=== PATIENT | female | born 1970 | race Caucasian/White ===

== ENCOUNTER 2018-04-14 19:02 | Emergency (ER) | payer OTHER ==
--- OUTSIDE RECORDS SUMMARY | 2018-04-14 19:05 | XMS REPORT ---
:1970 Author Organization eClinicalWorks Care Team Providers Name Role Phone Ena Pillai Provider Role Unavailable Allergies, Adverse Reactions, Alerts Substance Reaction Event Type codeine vomiting Drug Allergy Problems Problem Type Condition Code Onset Dates Condition Status Assessment Reflux K21.9 Active Assessment Depression with anxiety F41.8 Active Assessment Difficulty swallowing solids R13.10 Active Assessment Cigarette nicotine dependence F17.210 Active without complication Assessment Hot flashes due to surgical E89.41 Active menopause Problem Depression with anxiety F41.8 Active Problem Reflux K21.9 Active Problem Migraine G43.909 Active Problem Cigarette nicotine dependence F17.210 Active without complication Problem Difficulty swallowing solids R13.10 Active Problem Hot flashes due to surgical E89.41 Active menopause Problem Hot flashes due to menopause N95.1 Active Medications Medication Code System Code Instructions Start End Date Status Dosage Date Pepcid [facility] 09756508956 20 MG Orally Active 1 tablet at Once a day bedtime nexium [facility] 92503425733 Oral Active 1 tab Results No Known Results Summary Purpose eClinicalWorks Submission
--- OUTSIDE RECORDS SUMMARY | 2018-04-14 19:05 | XMS REPORT ---
:1970 Author Organization eClinicalWorks Care Team Providers Name Role Phone Ena Pillai Provider Role Unavailable Allergies No Known Allergies Problems Problem Type Condition Code Onset Dates Condition Status Problem Depression with anxiety F41.8 Active Problem Reflux K21.9 Active Assessment Hypothyroidism (acquired) E03.9 Active Assessment Hyperlipidemia, unspecified E78.5 Active hyperlipidemia type Problem Hyperlipidemia, unspecified E78.5 Active hyperlipidemia type Problem Hot flashes due to surgical E89.41 Active menopause Problem Hypothyroidism (acquired) E03.9 Active Problem Difficulty swallowing solids R13.10 Active Problem Migraine G43.909 Active Problem Hot flashes due to menopause N95.1 Active Problem Cigarette nicotine dependence F17.210 Active without complication Medications Medication Code Code Instructions Start End Status Dosage System Date Date Levothyroxine [facility] 64037002893 25 MCG Orally Apr 06, Active 1 tablet Sodium Once a day 2017 on an empty stomach in the morning Simvastatin ND 18430922936 20 MG Orally Apr 06, Active 1 tablet Once a day 2017 in the evening Results No Known Results Summary Purpose eClinicalWorks Submission
[2018-04-14] MEDS ORDERED: METHYLPREDNISOLONE 125 MG INJ ONE (19:25)
--- NOTE | 2018-04-14 19:36 | EDPHYS ---
Physician Documentation [facility] Name: Sharifa Calderón Age: 47 yrs Sex: Female : 1970 Arrival Date: 04/14/2018 Time: 19:07 Bed Treatment Private MD: ED Physician Sincere Kathleen HPI: 04/14 19:27 This 47 yrs old Female presents to ER via Ambulatory with complaints of rn Allergic Reaction. 19:27 The patient presents with itching, rash. Onset: The symptoms/episode began/occurred rn today. Associated signs and symptoms: Pertinent positives: hives, Pertinent negatives: abdominal pain, chest pain, fever, shortness of breath, swelling. Possible causes: poison becky, poison oak. At home the patient or guardian has treated the symptoms with topical steroid and claritin. Severity of symptoms: At their worst the symptoms were mild in the emergency department the symptoms are unchanged. The patient has not experienced similar symptoms in the past. Reports has poison becky/oak and was cutting it down, began with rash to face, now spreading to rest of face and right posterior thigh.. 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 - Social history:: Smoking status: Patient uses tobacco products, smokes one pack cigarettes per day. - Ebola Screening: : No symptoms or risks identified at this time. - Family history:: not pertinent. - Hospitalizations: : No recent hospitalization is reported. ROS: 19:27 Constitutional: Negative for fever, chills, and weight loss, Eyes: Negative for injury, rn pain, redness, and discharge, Neck: Negative for injury, pain, and swelling, Cardiovascular: Negative for chest pain, palpitations, and edema, Respiratory: Negative for shortness of breath, cough, wheezing, and pleuritic chest pain, Abdomen/GI: Negative for abdominal pain, nausea, vomiting, diarrhea, and constipation, MS/Extremity: Negative for injury and deformity, Skin: + rash to face and right posterior thigh Neuro: Negative for headache, weakness, numbness, tingling, and seizure. Exam: 19:27 Constitutional: This is a well developed, well nourished patient who is awake, alert, rn and in no acute distress. Head/Face: + erythema and urticarial lesions of entire face, no conjunctival involvement, is bilateral, no pustules. Eyes: Pupils equal round and reactive to light, extra-ocular motions intact. Lids and lashes normal. Conjunctiva and sclera are non-icteric and not injected. Cornea within normal limits. ENT: no intraoral lesions Skin: warm, dry, + erythema with papular lesions right posterior thigh Neuro: Awake and alert, GCS 15, oriented to person, place, time, and situation. Cranial nerves II-XII grossly intact. Motor strength 5/5 in all extremities. Sensory grossly intact. Cerebellar exam normal. Normal gait. Vital Signs: 19:13 BP 127 / 84; Pulse 77; Resp 18; Temp 98.2; Pulse Ox 97% ; Weight 83.46 kg; Height 5 ft. ph 3 in. (160.02 cm); 20:01 BP 122 / 72; Pulse 78; Resp 18; Pulse Ox 100% on R/A; Pain 0/10; mg2 19:13 Body Mass Index 32.59 (83.46 kg, 160.02 cm) ph MDM: 19:15 Patient medically screened. rn 19:30 Differential diagnosis: urticaria, poison becky/sumac/oak. Data reviewed: vital signs, rn nurses notes, and as a result, I will discharge patient. Counseling: I had a detailed discussion with the patient and/or guardian regarding: the historical points, exam findings, and any diagnostic results supporting the discharge/admit diagnosis, the need for outpatient follow up, to return to the emergency department if symptoms worsen or persist or if there are any questions or concerns that arise at home. Special discussion: I discussed with the patient/guardian in detail that at this point there is no indication for admission to the hospital. It is understood, however, that if the symptoms persist or worsen the patient needs to return immediately for re-evaluation. Administered Medications: 19:25 Drug: SOLU-Medrol 125 mg Route: IM; Site: left gluteus; mg2 20:01 Follow up: Response: No adverse reaction; Marked relief of symptoms mg2 Disposition: 04/14/18 19:35 Discharged to Home. Impression: Irritant contact dermatitis. - Condition is Stable. - Discharge Instructions: Poison Becky Dermatitis. - Prescriptions for Medrol (Jose Maria) 4 mg Oral Tablets, Dose Pack - take 1 tablet by ORAL route as directed - follow package instructions; 1 packet. - Medication Reconciliation Form, Thank You Letter, Antibiotic Education, Prescription Opioid Use form. - Follow up: Private Physician; When: As needed; Reason: Recheck today's complaints, Re-evaluation by your physician. - Problem is new. - Symptoms have improved. Signatures: Sincere Kathleen MD MD rn Priya Gaviria RN RN Grayson Syed RN RN mg2 Corrections: (The following items were deleted from the chart) 20:02 19:35 04/14/2018 19:35 Discharged to Home. Impression: Irritant contact dermatitis. mg2 Condition is Stable. Forms are Medication Reconciliation Form, Thank You Letter, Antibiotic Education, Prescription Opioid Use. Follow up: Private Physician; When: As needed; Reason: Recheck today's complaints, Re-evaluation by your physician. Problem is new. Symptoms have improved. rn
--- NOTE | 2018-04-14 19:36 | ER ---
Nurse's Notes [facility] Name: Sharifa Calderón Age: 47 yrs Sex: Female : 1970 Arrival Date: 04/14/2018 Time: 19:07 Bed Treatment Private MD: Diagnosis: Irritant contact dermatitis Presentation: 04/14 19:11 Presenting complaint: Patient states: I think I got into some poison raulito or something, ph it started off as a small spot on my cheek this morning and then spread to the rest of my face. I have a spot on the back of my R leg as well." Redness notes to R side of face, pt denies SOB. Transition of care: patient was not received from another setting of care. Onset: The symptoms/episode began/occurred gradually. Anaphylaxis evaluation, no signs or symptoms of anaphylaxis were noted. Onset of symptoms was April 14, 2018. Risk Assessment: Do you want to hurt yourself or someone else? Patient reports no desire to harm self or others. Initial Sepsis Screen: Does the patient meet any 2 criteria? No. Patient's initial sepsis screen is negative. Does the patient have a suspected source of infection? No. Patient's initial sepsis screen is negative. Care prior to arrival: None. 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 - Social history:: Smoking status: Patient uses tobacco products, smokes one pack cigarettes per day. - Ebola Screening: : No symptoms or risks identified at this time. - Family history:: not pertinent. - Hospitalizations: : No recent hospitalization is reported. Screenin:25 Abuse screen: Denies threats or abuse. Denies injuries from another. Nutritional mg2 screening: No deficits noted. Tuberculosis screening: No symptoms or risk factors identified. Fall Risk None identified. Assessment: 19:26 General: Appears in no apparent distress. comfortable, Behavior is calm, cooperative. mg2 Pain: Complains of pain in face Pain does not radiate. Neuro: Level of Consciousness is awake, alert, obeys commands, Oriented to person, place, time, situation. Cardiovascular: Capillary refill < 3 seconds Patient's skin is warm and dry. Respiratory: Airway is patent Respiratory effort is even, unlabored, Respiratory pattern is regular, symmetrical. GI: No signs and/or symptoms were reported involving the gastrointestinal system. : No signs and/or symptoms were reported regarding the genitourinary system. EENT: No signs and/or symptoms were reported regarding the EENT system. Derm: Skin is intact, Skin is pink, warm \\T\\ dry. Rash noted that is itchy. Musculoskeletal: No signs and/or symptoms reported regarding the musculoskeletal system. 20:00 Reassessment: Patient appears in no apparent distress at this time. Patient and/or mg2 family updated on plan of care and expected duration. Pain level reassessed. Patient is alert, oriented x 3, equal unlabored respirations, skin warm/dry/pink. Respiratory: Breath sounds are clear. Vital Signs: 19:13 BP 127 / 84; Pulse 77; Resp 18; Temp 98.2; Pulse Ox 97% ; Weight 83.46 kg; Height 5 ft. ph 3 in. (160.02 cm); 20:01 BP 122 / 72; Pulse 78; Resp 18; Pulse Ox 100% on R/A; Pain 0/10; mg2 19:13 Body Mass Index 32.59 (83.46 kg, 160.02 cm) ph ED Course: 19:07 Patient arrived in ED. es 19:13 Triage completed. ph 19:14 Arm band placed on Patient placed in an exam room. ph 19:15 Sincere Kathleen MD is Attending Physician. rn 19:16 Grayson Syed RN is Primary Nurse. mg2 19:27 Patient has correct armband on for positive identification. Door closed. Warm blanket mg2 given. 20:01 No provider procedures requiring assistance completed. Patient did not have IV access mg2 during this emergency room visit. Administered Medications: 19:25 Drug: SOLU-Medrol 125 mg Route: IM; Site: left gluteus; mg2 20:01 Follow up: Response: No adverse reaction; Marked relief of symptoms mg2 Outcome: 19:35 Discharge ordered by . rn 20:01 Discharged to home ambulatory. mg2 20:01 Condition: stable 20:01 Discharge instructions given to patient, family, Instructed on discharge instructions, follow up and referral plans. medication usage, Demonstrated understanding of instructions, follow-up care, medications, Prescriptions given X 1. 20:02 Patient left the ED. mg2 Signatures: Callie Llanes Roman, MD MD rn FlorencePriya RN RN Grayson Syed RN RN mg2
== END 2018-04-14 20:02 | disposition home or self-care (01) ==
LOC: ER 19:02
DX: L24.7 Irritant contact dermatitis due to plants, except food (principal); F17.210 Nicotine dependence, cigarettes, uncomplicated; Z88.5 Allergy status to narcotic agent
CPT/HCPCS: 96372; 99283; J2930

== ENCOUNTER 2018-04-17 14:49 | Emergency (ER) | payer OTHER ==
--- OUTSIDE RECORDS SUMMARY | 2018-04-17 14:51 | XMS REPORT ---
[...] Start End Date Status Dosage Date Pepcid [facility] [id number] 20 MG Orally Active 1 tablet at Once a day bedtime nexium [facility] 24232962888 Oral Active 1 tab Results No Known Results Summary Purpose eClinicalWorks Submission
--- OUTSIDE RECORDS SUMMARY | 2018-04-17 14:51 | XMS REPORT ---
[...] End Status Dosage System Date Date Levothyroxine [facility] 37666446122 25 MCG Orally Apr 06, Active 1 tablet Sodium Once a day 2017 on an empty stomach in the morning Simvastatin ND 79728688355 20 MG Orally Apr 06, Active 1 tablet Once a day 2017 in the evening Results No Known Results Summary Purpose eClinicalWorks Submission
[2018-04-17] MEDS ORDERED: METHYLPREDNISOLONE 125 MG INJ ONE (15:35)
--- NOTE | 2018-04-17 15:43 | ER ---
Nurse's Notes [facility] Name: Sharifa Calderón Age: 47 yrs Sex: Female : 1970 Arrival Date: 04/17/2018 Time: 14:49 Bed 27 Private MD: Kaycee Pillai Diagnosis: Allergic contact dermatitis due to plants, except food Presentation: 04/17 15:02 Presenting complaint: Patient states: she has right facial rash/redness and burning mg2 that started last Friday. She visited our ED last Friday and discharged with steroid but yesterday she feels more pain/burning on her face. Transition of care: patient was not received from another setting of care. Onset of symptoms was April 2018. Risk Assessment: Do you want to hurt yourself or someone else? Patient reports no desire to harm self or others. Initial Sepsis Screen: Does the patient meet any 2 criteria? No. Patient's initial sepsis screen is negative. Does the patient have a suspected source of infection? No. Patient's initial sepsis screen is negative. Care prior to arrival: None. 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 - Social history:: Smoking status: Patient uses tobacco products, smokes one-half pack cigarettes per day, Patient/guardian denies using alcohol, street drugs, IV drugs. - Ebola Screening: : No symptoms or risks identified at this time. Screenin:55 Abuse screen: Denies threats or abuse. Denies injuries from another. Nutritional mg2 screening: No deficits noted. Tuberculosis screening: No symptoms or risk factors identified. Fall Risk None identified. Assessment: 15:54 General: Appears in no apparent distress. comfortable, Behavior is calm, cooperative. mg2 Pain: Complains of pain in face Pain does not radiate. Pain currently is 4 out of 10 on a pain scale. Quality of pain is described as burning, aching, Pain began gradually. Neuro: Level of Consciousness is awake, alert, obeys commands, Oriented to person, place, time, situation. Cardiovascular: Capillary refill < 3 seconds Patient's skin is warm and dry. Respiratory: Airway is patent Respiratory effort is even, unlabored, Respiratory pattern is regular, symmetrical. GI: No signs and/or symptoms were reported involving the gastrointestinal system. : No signs and/or symptoms were reported regarding the genitourinary system. EENT: No signs and/or symptoms were reported regarding the EENT system. Derm: Skin is intact, Rash noted that is itchy, red. Musculoskeletal: No signs and/or symptoms reported regarding the musculoskeletal system. Vital Signs: 15:06 BP 114 / 86; Pulse 91; Resp 18; Temp 98.7; Pulse Ox 98% ; Weight 83.46 kg; Height 5 ft. mg2 3 in. (160.02 cm); Pain 7/10; 15:30 BP 117 / 68 (auto/reg); Pulse 90; Resp 18; Pulse Ox 98% on R/A; jp3 15:06 Body Mass Index 32.59 (83.46 kg, 160.02 cm) mg2 ED Course: 14:49 Patient arrived in ED. sb2 14:50 Kaycee Pillai is Private Physician. sb2 15:02 Grayson Syed, RISA is Primary Nurse. mg2 15:02 Geneva Harper FNP-C [facility]. kb 15:02 Neal Perkins MD is Attending Physician. kb 15:04 Triage completed. mg2 15:06 Arm band placed on. mg2 15:56 Patient has correct armband on for positive identification. Call light in reach. Side mg2 rails up X 1. Pulse ox on. NIBP on. 15:56 No provider procedures requiring assistance completed. Patient did not have IV access mg2 during this emergency room visit. Administered Medications: 15:38 Drug: SOLU-Medrol 125 mg Route: IM; Site: right gluteus; mg2 15:57 Follow up: Response: No adverse reaction; Medication administered at discharge. mg2 Outcome: 15:42 Discharge ordered by . kb 15:56 Discharged to home ambulatory, with family. mg2 15:56 Condition: good 15:56 Discharge instructions given to patient, family, Instructed on discharge instructions, follow up and referral plans. medication usage, Demonstrated understanding of instructions, follow-up care, medications, Prescriptions given X 1. 15:58 Patient left the ED. mg2 Signatures: Geneva Harper, REGISTERED DIETICIAN-C REGISTERED DIETICIAN-Ckb Chelita Murphy sb2 Grayson Syed, RN RN mg2 Jose Alejandro Larsen jp3
--- NOTE | 2018-04-17 15:43 | EDPHYS ---
Physician Documentation [facility] Name: Sharifa Calderón Age: 47 yrs Sex: Female : 1970 Arrival Date: 04/17/2018 Time: 14:49 Bed 27 Private MD: Kaycee Pillai ED Physician Neal Perkins HPI: 04/17 15:43 This 47 yrs old Female presents to ER via Ambulatory with complaints of Rash, kb Facial Swelling. 15:43 The patient's rash thought to be caused by Contact allergy. The rash is located on the kb face. The rash can be described as erythematous. Onset: The symptoms/episode began/occurred 5 day(s) ago. Associated signs and symptoms: Pertinent positives: burning sensation, itching, Pertinent negatives: difficulty breathing, fever, nausea, Pain swelling of lips, swelling of throat, swelling of tongue, vomiting, wheezing. Severity of symptoms: At their worst the symptoms were moderate in the emergency department the symptoms are unchanged. Treatment given at home: oral steroids, OTC lotion/cream. The patient has not experienced similar symptoms in the past. The patient has been recently seen at the [facility] Emergency Department. Pt states she got into poison becky and had a reaction to face. Was seen here on Friday and given a shot of solumedrol that made her feel much better. Today her face feels more swollen and burning. states it appears to be better than when it started. . 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 - Social history:: Smoking status: Patient uses tobacco products, smokes one-half pack cigarettes per day, Patient/guardian denies using alcohol, street drugs, IV drugs. - Ebola Screening: : No symptoms or risks identified at this time. ROS: 15:42 Constitutional: Negative for fever, chills, and weight loss, Cardiovascular: Negative kb for chest pain, palpitations, and edema, Respiratory: Negative for shortness of breath, cough, wheezing, and pleuritic chest pain, Abdomen/GI: Negative for abdominal pain, nausea, vomiting, diarrhea, and constipation, Back: Negative for injury and pain, : Negative for injury, bleeding, discharge, and swelling, MS/Extremity: Negative for injury and deformity, Neuro: Negative for headache, weakness, numbness, tingling, and seizure. 15:42 Skin: Positive for erythema, rash, swelling, of the face. Exam: 15:42 Constitutional: This is a well developed, well nourished patient who is awake, alert, kb and in no acute distress. Head/Face: Normocephalic, atraumatic. Chest/axilla: Normal chest wall appearance and motion. Nontender with no deformity. No lesions are appreciated. Cardiovascular: Regular rate and rhythm with a normal S1 and S2. No gallops, murmurs, or rubs. Normal PMI, no JVD. No pulse deficits. Respiratory: Lungs have equal breath sounds bilaterally, clear to auscultation and percussion. No rales, rhonchi or wheezes noted. No increased work of breathing, no retractions or nasal flaring. Abdomen/GI: Soft, non-tender, with normal bowel sounds. No distension or tympany. No guarding or rebound. No evidence of tenderness throughout. MS/ Extremity: Pulses equal, no cyanosis. Neurovascular intact. Full, normal range of motion. Neuro: Awake and alert, GCS 15, oriented to person, place, time, and situation. Cranial nerves II-XII grossly intact. Motor strength 5/5 in all extremities. Sensory grossly intact. Cerebellar exam normal. Normal gait. 15:42 Skin: consistent with contact dermatitis, on the face. Vital Signs: 15:06 BP 114 / 86; Pulse 91; Resp 18; Temp 98.7; Pulse Ox 98% ; Weight 83.46 kg; Height 5 ft. mg2 3 in. (160.02 cm); Pain 7/10; 15:30 BP 117 / 68 (auto/reg); Pulse 90; Resp 18; Pulse Ox 98% on R/A; jp3 15:06 Body Mass Index 32.59 (83.46 kg, 160.02 cm) mg2 MDM: 15:02 Patient medically screened. kb 15:40 Data reviewed: vital signs, nurses notes. Data interpreted: Pulse oximetry: on room air kb is 98 %. Interpretation: normal. Counseling: I had a detailed discussion with the patient and/or guardian regarding: the historical points, exam findings, and any diagnostic results supporting the discharge/admit diagnosis, the need for outpatient follow up, a family practitioner, to return to the emergency department if symptoms worsen or persist or if there are any questions or concerns that arise at home. Administered Medications: 15:38 Drug: SOLU-Medrol 125 mg Route: IM; Site: right gluteus; mg2 15:57 Follow up: Response: No adverse reaction; Medication administered at discharge. mg2 Disposition: 18:15 Co-signature as Attending Physician, Neal Perkins MD I agree with the assessment and kdr plan of care. Disposition: 04/17/18 15:42 Discharged to Home. Impression: Allergic contact dermatitis due to plants, except food. - Condition is Stable. - Discharge Instructions: Poison Becky Dermatitis, [id number], Contact Dermatitis, [id number]. - Prescriptions for Prednisone 20 mg Oral Tablet - take 1 tablet by ORAL route once daily for 5 days; 5 tablet. - Medication Reconciliation Form, Thank You Letter, Antibiotic Education, Prescription Opioid Use form. - Follow up: Emergency Department; When: As needed; Reason: Worsening of condition. Follow up: Private Physician; When: 2 - 3 days; Reason: Recheck today's complaints, Continuance of care, Re-evaluation by your physician. Signatures: Geneva Harper, PEOPLESOFT CONSULTANT-C PEOPLESOFT CONSULTANT-Ckb Neal Perkins MD MD [facility] Grayson Syed RN RN mg2 Corrections: (The following items were deleted from the chart) 15:58 15:42 04/17/2018 15:42 Discharged to Home. Impression: Allergic contact dermatitis due mg2 to plants, except food. Condition is Stable. Forms are Medication Reconciliation Form, Thank You Letter, Antibiotic Education, Prescription Opioid Use. Follow up: Emergency Department; When: As needed; Reason: Worsening of condition. Follow up: Private Physician; When: 2 - 3 days; Reason: Recheck today's complaints, Continuance of care, Re-evaluation by your physician. kb
== END 2018-04-17 15:58 | disposition home or self-care (01) ==
LOC: ER 14:49
DX: L23.7 Allergic contact dermatitis due to plants, except food (principal); F17.210 Nicotine dependence, cigarettes, uncomplicated; Z88.5 Allergy status to narcotic agent
CPT/HCPCS: 96372; 99283; J2930